=== PATIENT | female | born 1965 | race African-American/Black ===

== ENCOUNTER 2017-04-15 12:00 | Emergency (ER) | payer SELFPAY ==
[~2017-04-15] VITALS: Ht 165.1 cm; Wt 78.9 kg
[2017-04-15 12:43] LABS: ABSOLUTE EOSINOPHILS 0.2 thou/uL (0.0-0.7); ABSOLUTE LYMPHOCYTES 1.4 thou/uL (0.8-5.3); ABSOLUTE MONOCYTES 0.3 thou/uL (0.0-1.2); ABSOLUTE NEUTROPHILS 1.6 thou/uL (1.6-8.1); BASOPHILS 0.5 %; EOSINOPHILS 5.5 %; HEMATOCRIT 40.1 % (37.0-47.0); HEMOGLOBIN 13.4 gm/dL (12.0-15.0); LYMPHOCYTES 39.8 %; MCH 31.8 pg (26.0-34.0); MCHC 33.4 g/dL (28.0-37.0); MCV 95.3 fL (80.0-100.0); MONOCYTES 9.1 %; MPV 8.3 fl. (7.2-11.1); NUCLEATED RBCS 0 /100WBC; PLATELET COUNT* 220 thou/uL (150-400); POLYS 45.1 %; RBC 4.21 mil/uL (4.20-5.00); RDW-CV 13.7 % (10.5-14.5); WBC 3.5 thou/uL (4.0-11.0)
[2017-04-15 12:47] LABS: ANION GAP 2 mmol/L (7-16); BUN 14 mg/dL (7-18); CALCIUM 8.6 mg/dL (8.5-10.1); CHLORIDE 104 mmol/L (98-107); CO2 33 mmol/L (21-32); CREATININE 0.7 mg/dL (0.6-1.3); GLUCOSE 92 mg/dL (70-99); SODIUM 139 mmol/L (136-145)
[2017-04-15 12:56] LABS: ALBUMIN 3.6 g/dL (3.4-5.0); ALKALINE PHOSPHATASE 77 U/L (46-116); LIPASE 67 U/L (73-393); SGOT 15 U/L (15-37); SGPT 23 U/L (30-65); TOTAL BILIRUBIN 0.3 mg/dL (<0.1-1.0); TOTAL PROTEIN 7.2 g/dL (6.4-8.2); TROPONIN-I LEVEL <0.06 ng/mL (<0.06)
[2017-04-15 14:23] VITALS: BP 107/66
--- NOTE | 2017-04-15 15:22 | EKG ---
[place] [address] ELECTROCARDIOGRAM REPORT Name: BROCK CHE Room: [facility]#: [id number] Admission: 04/15/17 Attend Phys: Discharge: 04/15/17 Date of : 67 Report #: [id number] THIS REPORT FOR: //name// [facility] ED Test Date: 2017-04-15 Test Time: 12:06:53 Pat Name: BEKAHNINI CHE Department: Room: Gender: F Bung Sewer: GARDEN[place] : 1965 Requested By: Myesha Charles Order Number: [id number] MD: Ga Jonas Measurements Intervals [place] Rate: 72 P: 66 [place]: 196 QRS: 29 QRSD: 108 T: 50 QT: 393 QTc: 431 Interpretive Statements Sinus rhythm Probable left atrial enlargement No previous ECG available for comparison Electronically Signed On 04-15-2017 15:22:25 [employer] by Ga Jonas [email or web address] <ELECTRONICALLY SIGNED> By: Ga Jonas MD, [facility] 04/15/17 1522 1206 1206 Ga Jonas MD, FACC /EPI
== END 2017-04-15 14:23 | disposition home or self-care (01) ==
LOC: M.ERS 12:00
PROVIDERS: Personal Emergency Response Attendant
DX: R07.89 Other chest pain (principal); Z90.710 Acquired absence of both cervix and uterus

== ENCOUNTER → 2018-05-06 | Outpatient (CLI) | payer OTHER | LOC: M.RAD 10:02 | DX: Z12.31 Encounter for screening mammogram for malignant neoplasm of breast (principal) ==